=== PATIENT | female | born 1970 | race Caucasian/White ===

== ENCOUNTER → 2017-04-25 | Outpatient (CLI) | payer BC ==
[~2017-04-25] MED LIST: AUGMENTIN1 TA1 PO; ESTRADIOL1 M1 PO; ETODOLAC200 MG PO; OMEPRAZOLE40 MG PO; VIENVA-28 TABL1 EACH PO; VITAMIN D31000 IU PO; ZYRTEC ALLERGY10 MG PO; [UNRECOGNIZED DRUG - OTHER] TP
--- NOTE | 2017-04-25 22:03 | RADIOLOGY REPORT PS360 ---
DIG MAMM-SCREEN [place] W/CAD CAD Screening ORDERING PHYSICIAN : Jesus Gutierrez MD PATIENT AGE: 46 years GENDER: Female COMPARISON: Previous mammograms: September 2014August INDICATION: Routine screening 46-year-old with no new complaints. Does taking female hormones. Noncontributory family history TECHNIQUE: Standard CC and MLO images were obtained. R2 CAD reviewed. Additional axillary left cc view FINDINGS: Moderate breast density mild asymmetry RIGHT BREAST: The MLO view appears stable. On the cc view there is a 6.6 mm focal area of density highlighted by CAD at the lateral right breast. A likely is towards superior breast on MLO view where it appears similar to previous studies.. Suspect it most likely summation shadow but it does warrant additional spot view cc and MLO spot views further evaluate. If it should persist then ultrasound recommended LEFT BREAST: Stable with no new findings . Intramammary nodes at the deep axillary left breast appears stable IMPRESSION: ...... . Right breast.. Small Focal area of density at the lateral right breast on cc view most likely summation shadow but does warrant further evaluation since it is more pronounced previous studies Left breast. --Unchanged. BI-RADS CATEGORY: 0_Incomplete: Need additional imaging. RECOMMENDED FOLLOWUP: ADD ADDITIONAL IMAGING right breast Spot views right breast (A letter has been sent to the patient regarding results of the study.)
== END ==
LOC: RAD 09:51
DX: Z12.31 Encounter for screening mammogram for malignant neoplasm of breast (principal)
CPT/HCPCS: G0202